=== PATIENT | female | born 1960 | race Caucasian/White ===

== ENCOUNTER 2019-06-27 09:30 | Outpatient (REF) | payer OTHER, SELFPAY ==
--- NOTE | 2019-06-27 08:30 | PAPFT_PTH ---
PATIENT: FELICIA AVINA [id number] AGE/SX: 59/F ROOM: RE06/27/[address]: Grazyna Thomason : 1960 BED: DIS: 06/27/2019 SPEC #: [id number] RECD: 06/28/19 12:54 STATUS: CARLIN REQ #: [id number] YOLANDA: 06/27/19 08:[address]: Grazyna Thomason DEPT: [facility] Cytology RECD BY: Angelia Hawthorne Tissues: 1 - CX/ENDOCX FOR PAP SMEARS Procedures: PAP THIN PREP/[facility] Screening HPV DNA PROBE Comments: [id number] (CHLAMYDIA/GC)
[2019-06-27 21:02] LABS: Abs Immature Grans 0.01 k/cumm (0.0-0.09); Absolute Basophil Count 0.03 k/cumm (0.0-0.2); Absolute Eosinophil Count 0.03 k/cumm (0.0-0.7); Absolute Lymphocyte Count 1.15 k/cumm (1.2-3.4); Absolute Monocyte Count 0.39 k/cumm (0.11-0.7); Absolute Neutrophil Count 2.26 k/cumm (1.2-6.7); Basophils % 0.8; Eosinophils % 0.8; HCT 37.9 % (36.0-46.0); HGB 12.8 g/dL (12.0-15.5); Immature Grans % 0.3 %; Lymphocytes % 29.7; Mean Corp. HGB Concentration 33.8 g/dL (32.0-36.0); Mean Corpuscular Hemoglobin 32.9 pg (27.0-33.0); Mean Corpuscular Volume 97.4 fL (80-95); Mean Platelet Volume 11.4 fL (8.0-11.0); Monocytes % 10.1; Neutrophils % 58.3; Platelet Count 256 x1000/uL (130-400); RBC 3.89 m/cumm (4.00-5.20); White Blood Cell Count 3.87 k/cumm (4.4-10.8)
[2019-06-27 21:15] LABS: ALT 21 U/L (14-59); AST 23 U/L (15-37); Albumin 4.1 g/dL (3.4-5.0); Alkaline Phosphatase 87 U/L (46-116); Anion Gap 8.7 mmol/L (3-11); BUN 11 mg/dL (7-18); Bilirubin, Total 0.4 mg/dL (0.2-1.0); CO2 27.3 mmol/L (21.0-32.0); CREATININE 0.62 mg/dL (0.55-1.02); Calcium 8.4 mg/dL (8.5-10.1); Calculated LDL 114 mg/dL (<100); Chloride 103 mmol/L (98-107); Cholesterol 197 mg/dL (<200); Glucose 90 mg/dL (74-106); HDL Cholesterol 70 mg/dL (40-60); Potassium 4.3 mmol/L (3.5-5.1); Sodium 139 mmol/L (136-145); TSH (W/Ref FT4) 1.49 uIU/mL (0.36-3.74); Triglyceride 66 mg/dL (<150)
[2019-06-29 14:33] LABS: Chlamydia Result Negative (Negative); GC Result Negative (Negative)
== END 2019-06-27 09:50 ==
LOC: NCHCN 09:30
PROVIDERS: PCP Physician Assistant; Visit Provider Physician Assistant
DX: Z00.00 Encounter for general adult medical examination without abnormal findings (principal); Z13.29 Encounter for screening for other suspected endocrine disorder; Z13.0 Encounter for screening for diseases of the blood and blood-forming organs and certain disorders involving the immune mechanism; Z13.220 Encounter for screening for lipoid disorders; Z13.1 Encounter for screening for diabetes mellitus; Z12.4 Encounter for screening for malignant neoplasm of cervix; Z11.51 Encounter for screening for human papillomavirus (HPV)
CPT/HCPCS: 80053; 80061; 87491; 87591; 88142; 84443; 85025; 87624